=== PATIENT | male | born 1975 | race Caucasian/White ===

== ENCOUNTER 2017-03-15 08:18 | Emergency (ER) | payer MEDICAID ==
[~2017-03-15] VITALS: Ht 185.4 cm; Wt 95.3 kg
[2017-03-15 08:22] VITALS: BP 126/93; PULSE 59; RESP 16; TEMP 96.7; O2SAT 97
--- NOTE | 2017-03-15 08:26 | NUR ---
Pt report received from ELEANOR Cabrera. Pt with generalized rash to BUE and trunk. Pt states that he was pulling weeds about 10 days ago and developed rash to BUE. Rash to trunk appeared 2 days ago. Redness and swelling to BUE with pain. Pt denies respiratory issues.
--- NOTE | 2017-03-15 08:26 | NUR ---
Patient to ER bed 4 to gown for evaluation. Side rails up. Report given to Chris WEBSTER.
[2017-03-15] MEDS ORDERED: methylPREDNISolone SOD SUCC/PF 62.5 MG/ML VIAL IVP ONE (08:30)
[2017-03-15] MEDS ORDERED: methylPREDNISolone SOD SUCC/PF 62.5 MG/ML VIAL IM ONE (08:30)
[2017-03-15] MEDS ORDERED: DIPHENHYDRAMINE INJ 50 MG/ML VIAL IM ONE (08:30)
--- NOTE | 2017-03-15 08:30 | NUR ---
Dr. Colon at bedside to assess pt.
[2017-03-15 08:55] VITALS: BP 125/88; PULSE 62; RESP 20; TEMP 97; O2SAT 100
--- NOTE | 2017-03-15 08:55 | NUR ---
Patient given written and verbal discharge instructions and verbalizes understanding. ER MD discussed with patient the results and treatment provided. Patient in stable condition. ID arm band removed. Rx of Hydrocortisone, Benadryl, and Prednisone given. Patient educated on pain management and to follow up with PMD. Pain Scale 2/10, tolerable. Opportunity for questions provided and answered.
== END 2017-03-15 08:55 | disposition home or self-care (01) ==
LOC: SED 08:18
DX: L50.9 Urticaria, unspecified (principal); L25.9 Unspecified contact dermatitis, unspecified cause
CPT/HCPCS: 96372; 99284; J1200; J2930

== ENCOUNTER 2019-08-08 15:52 | Emergency (ER) | payer SELFPAY ==
[~2019-08-08] VITALS: Ht 177.8 cm; Wt 93.0 kg
[2019-08-08 16:23] VITALS: BP_SYST 123
[2019-08-08] MEDS ORDERED: KETOROLAC TROMETHAMINE 60 MG/2 ML VIAL IM ONE (18:30)
[2019-08-08 19:18] VITALS: BP_SYST 117
== END 2019-08-08 19:16 | disposition home or self-care (01) ==
LOC: SED 15:52
DX: S52.121A Displaced fracture of head of right radius, initial encounter for closed fracture (principal); S52.131A Displaced fracture of neck of right radius, initial encounter for closed fracture; W11.XXXA Fall on and from ladder, initial encounter; Y93.89 Activity, other specified; Y92.89 Other specified places as the place of occurrence of the external cause; Y99.8 Other external cause status
CPT/HCPCS: 29105; 73080; 73110; 96372; 99283; J1885

== ENCOUNTER 2020-08-07 12:27 | Emergency (ER) | payer MEDICAID ==
[~2020-08-07] VITALS: Ht 193 cm; Wt 94.3 kg
[2020-08-07 12:46] VITALS: BP_SYST 147
--- NOTE | 2020-08-07 16:20 | NUR ---
Patient to ER bed 4 to gown for evaluation. Side rails up.
--- NOTE | 2020-08-07 16:27 | NUR ---
Pt came to ER for dizziness, he states he recently had bilateral ear infection. Pt resting in rhoople, on monitor, no distress noted, VSS
--- NOTE | 2020-08-07 16:30 | NUR ---
ER at bedside examining patient.
[2020-08-07] MEDS ORDERED: MECLIZINE HCL 25 MG TABLET (ANITVERT) PO ONE (16:45)
[2020-08-07 16:54] LABS: BASOPHILS % (AUTO) 0.7 % (0.0-2.0); EOSINOPHILS % (AUTO) 0.5 % (0.0-4.0); HEMATOCRIT 43.7 % (36-54); HEMOGLOBIN 15.1 g/dL (14.0-18.0); LYMPHOCYTES # (AUTO) 1.9 K/uL (1.0-5.5); LYMPHOCYTES % (AUTO) 30.1 % (20.5-51.5); MEAN CORPUSCULAR HEMOGLOBIN 31 pg (27-31); MEAN CORPUSCULAR HGB CONC 35 % (32-36); MEAN CORPUSCULAR VOLUME 90 fL (79.0-98.0); MONOCYTES # (AUTO) 0.3 K/uL (0.0-1.0); MONOCYTES % (AUTO) 4.7 % (1.7-9.3); NEUTROPHILS # (AUTO) 4.1 K/uL (1.8-7.7); PLATELET COUNT (AUTO) 145 K/uL (130-430); RED BLOOD CELL COUNT(AUTO) 4.86 MIL/uL (4.2-6.2); RED CELL DISTRIBUTION WIDTH 12.6 % (9.0-15.0); WHITE BLOOD COUNT (AUTO) 6.4 K/uL (4.8-10.8)
[2020-08-07 17:26] LABS: CALCIUM 9.2 mg/dL (8.4-11.0); CREATININE 0.83 mg/dL (0.55-1.30); POTASSIUM 4.2 mmol/L (3.5-5.1)
[2020-08-07 17:33] LABS: ALBUMIN 4.1 g/dL (3.4-4.8); TOTAL BILIRUBIN 1.1 mg/dL (0.0-1.0)
--- NOTE | 2020-08-07 17:50 | NUR ---
Pt resting comfortably at this time no distress
[2020-08-07 18:40] VITALS: BP_SYST 140
--- NOTE | 2020-08-07 18:42 | NUR ---
Patient given written and verbal discharge instructions and verbalizes understanding. ER MD discussed with patient the results and treatment provided. Patient in stable condition. ID arm band removed. Rx of Meclizine given. Patient educated on pain management and to follow up with PMD. Pain Scale 0/10. Opportunity for questions provided and answered. Medication side effect fact sheet provided.
== END 2020-08-07 18:40 | disposition home or self-care (01) ==
LOC: SED 12:27
DX: H66.91 Otitis media, unspecified, right ear (principal); R42 Dizziness and giddiness
CPT/HCPCS: 36415; 80053; 82550; 85025; 99283; J8597